=== PATIENT | female | born 1980 | race American Indian/Alaskan Native ===

== ENCOUNTER 2017-01-26 13:29 | Emergency (ER) | payer MEDICAID ==
--- NOTE | 2017-01-26 14:07 | XRay Report ---
ROUTINE CHEST, TWO VIEWS: SOB PA and lateral views demonstrate the heart and mediastinal contour to be of normal size and shape. The lungs are clear and fully expanded and the soft tissues and bony structures are normal. IMPRESSION: Normal study.
[2017-01-26 14:08] LABS: Basophils % (Auto) 0.5 % (0.0-1.8); Eosinophils % (Auto) 0.6 % (0.0-4.3); Hematocrit 43.8 % (30.3-42.9); Hemoglobin 14.3 gm/dl (10.1-14.3); Mean Corpuscular HGB Conc 33 % (30-34); Mean Corpuscular Hemoglobin 30 pg (28-32); Mean Corpuscular Volume 92 fl (79-97); Platelet Count 227 K/mm3 (140-440); Red Blood Count 4.75 M/mm3 (3.65-5.03); Red Cell Distribution Width 15.5 % (13.2-15.2); White Blood Count 3.8 K/mm3 (4.5-11.0)
[2017-01-26 14:20] LABS: Anion Gap 16 mmol/L; BUN/Creatinine Ratio 18.57; Blood Urea Nitrogen 13 mg/dL (7-17); Calcium 9.3 mg/dL (8.4-10.2); Carbon Dioxide 25 mmol/L (22-30); Chloride 104.9 mmol/L (98-107); Glucose 77 mg/dL (65-100); Potassium 4.1 mmol/L (3.6-5.0); Sodium 142 mmol/L (137-145)
[2017-01-26] MEDS ORDERED: MOTRIN PO ONE (20:14)
[2017-01-26] MEDS ORDERED: PEPCID PO ONE (20:14)
--- NOTE | 2017-01-26 20:15 | Emergency Department Report ---
ED Chest Pain HPI - General Chief Complaint: Chest Pain Stated Complaint: CHEST PAIN Time Seen by Provider: 01/26/17 20:04 Source: patient Mode of arrival: Ambulatory Limitations: No Limitations - History of Present Illness Initial Comments: Female with complaint of worsening chest pain over the last week. Patient states that she feels like she has some pressure in her chest especially when she lays flat. Denies other associated symptoms. Does not get worse with exertion. There is no radiation. She describes it as pressure in the center chest. No pain with food ingestion. No other medical problems Onset: during rest, during exertion Pain Location: substernal Pain Radiation: none Severity: mild, moderate Quality: pressure Improves With: nothing Worsens With: supine re: denies: nausea, vomting, diaphoresis, dyspnea, sense of impending doom, other - Related Data Previous Rx's Medication Instructions Recorded Last Taken Type amLODIPine [Norvasc] 5 mg PO DAILY #30 tab 11/03/13 07/04/14 Rx Famotidine [Pepcid] 20 mg PO ONCE PRN #30 tablet 01/26/17 Unknown Rx Ibuprofen [Motrin 600 MG tab] 600 mg PO ONCE PRN #30 tablet 01/26/17 Unknown Rx Allergies Allergy/AdvReac Type Severity Reaction Status Date / Time Sulfa (Sulfonamide Allergy Itching Verified 01/26/17 13:35 Antibiotics) Heart Score - HEART Score History: Slightly suspicious EKG: Normal Age: < 45 Risk factors: 1-2 risk factors Troponin: < normal limit HEART Score: 1 - Critical Actions Critical Actions: 0-3 pts:0.9-1.7%risk of adverse cardiac event.Candidate for discharge ED Review of Systems ROS: Stated complaint: CHEST PAIN Other details as noted in HPI Comment: All other systems reviewed and negative Constitutional: denies: chills, fever Eyes: denies: eye pain, eye discharge, vision change ENT: denies: ear pain, throat pain Respiratory: denies: cough, shortness of breath, wheezing Cardiovascular: denies: chest pain, palpitations Endocrine: no symptoms reported Gastrointestinal: denies: abdominal pain, nausea, diarrhea Genitourinary: denies: urgency, dysuria, discharge Musculoskeletal: denies: back pain, joint swelling, arthralgia Skin: denies: rash, lesions Neurological: denies: headache, weakness, paresthesias Psychiatric: denies: anxiety, depression Hematological/Lymphatic: denies: easy bleeding, easy bruising ED Past Medical Hx - Past Medical History Hx Hypertension: Yes - Surgical History Past Surgical History?: No Additional Surgical History: X 2 - Family History Family history: no significant - Social History Smoking Status: Current Every Day Smoker Substance Use Type: Alcohol - Medications Home Medications: Home Medications Medication Instructions Recorded Confirmed Last Taken Type amLODIPine [Norvasc] 5 mg PO DAILY #30 tab 11/03/13 01/26/17 07/04/14 Rx Famotidine [Pepcid] 20 mg PO ONCE PRN #30 tablet 01/26/17 Unknown Rx Ibuprofen [Motrin 600 MG tab] 600 mg PO ONCE PRN #30 tablet 01/26/17 Unknown Rx ED Physical Exam - General Limitations: No Limitations General appearance: alert, in no apparent distress - Head Head exam: Present: atraumatic, normocephalic - Eye Eye exam: Present: normal appearance - ENT ENT exam: Present: mucous membranes moist - Neck Neck exam: Present: normal inspection - Respiratory Respiratory exam: Present: normal lung sounds bilaterally. Absent: respiratory distress - Cardiovascular Cardiovascular Exam: Present: regular rate, normal rhythm. Absent: systolic murmur, diastolic murmur, rubs, gallop - GI/Abdominal GI/Abdominal exam: Present: soft, normal bowel sounds - Extremities Exam Extremities exam: Present: normal inspection - Back Exam Back exam: Present: normal inspection - Neurological Exam Neurological exam: Present: alert, oriented X3 - Psychiatric Psychiatric exam: Present: normal affect, normal mood - Skin Skin exam: Present: warm, dry, intact, normal color. Absent: rash ED Course Vital Signs 01/26/17 13:37 Temperature 98.2 F Pulse Rate 87 Respiratory 18 Rate Blood Pressure 160/110 O2 Sat by Pulse 99 Oximetry ED Medical Decision Making - Lab Data Result diagrams: 01/26/17 13:46 01/26/17 13:46 Laboratory Results - last 24 hr 01/26/17 01/26/17 01/26/17 13:46 13:46 16:19 WBC 3.8 L RBC 4.75 Hgb 14.3 Hct 43.8 H MCV 92 MCH 30 MCHC 33 RDW 15.5 H Plt Count 227 Lymph % (Auto) 39.4 H [place] % (Auto) 5.8 Eos % (Auto) 0.6 Baso % (Auto) 0.5 Lymph # 1.5 [place] # 0.2 Eos # 0.0 Baso # 0.0 Seg Neutrophils % 53.7 Seg Neutrophils # 2.1 Sodium 142 Potassium 4.1 Chloride 104.9 Carbon Dioxide 25 Anion Gap 16 BUN 13 Creatinine 0.7 Estimated GFR > 60 BUN/Creatinine Ratio 18.57 Glucose 77 Calcium 9.3 Troponin T < 0.010 < 0.010 - EKG Data -: EKG Interpreted by Me - EKG Data 01/26/17 20:13 Sinus 74 normal axis normal intervals no ST-T wave changes - Medical Decision Making 36-year-old female here with low risk chest pain and normal EKG normal chest x- ray labs unremarkable. Troponins negative 2. Her heart scar place her low risk. Likely musculoskeletal. Plan at discharge. Portions of this chart were dictated with dictation software. There may be dictation errors contained within this note. Critical care attestation.: If time is entered above; I have spent that time in minutes in the direct care of this critically ill patient, excluding procedure time. ED Disposition Clinical Impression: Chest pain Disposition: DC-01 TO HOME OR SELFCARE Is pt being admited?: No Condition: Stable Instructions: Chest Pain (ED) Additional Instructions: Follow-up with your primary care physician next week. Prescriptions: Famotidine [Pepcid] 20 mg PO ONCE PRN #30 tablet PRN Reason: Pain Ibuprofen [Motrin 600 MG tab] 600 mg PO ONCE PRN #30 tablet PRN Reason: Pain Referrals: PRIMARY CARE, [Primary Care Provider] - 3-5 Days
[2017-01-26 23:23] VITALS: BP 176/98
== END 2017-01-26 21:00 | disposition home or self-care (01) ==
LOC: ED 13:29
DX: R07.89 Other chest pain (principal); I10 Essential (primary) hypertension; F17.210 Nicotine dependence, cigarettes, uncomplicated; Z88.2 Allergy status to sulfonamides
CPT/HCPCS: 36415; 71020; 80048; 84484; 85025; 93005; 93010; 99285

== ENCOUNTER 2017-07-17 08:36 | Emergency (ER) | payer SELFPAY ==
[2017-07-17 10:19] LABS: Bilirubin,Urine NEG (Negative); Blood,Urine SM (Negative); Color,Urine Yellow (Yellow); Mucus,Urine 1+ /HPF; Nitrite,Urine NEG (Negative); Protein,Urine <15 mg/dL mg/dL (Negative); Urobilinogen,Urine < 2.0 mg/dL (<2.0); WBC,Urine < 1.0 /HPF (0.0-6.0)
[2017-07-17 10:20] LABS: HCG Qualitative,Urine Negative (Negative)
--- NOTE | 2017-07-17 11:20 | Emergency Department Report ---
ED Female HPI - General Chief complaint: Urogenital-Female Stated complaint: PELVIC PAIN Time Seen by Provider: 07/17/17 09:33 Source: patient Mode of arrival: Ambulatory Limitations: No Limitations - History of Present Illness Initial comments: Patient is a 37-year-old female with no prior medical history who presents to ED complaining of malodorous, vaginal discharge 4 days. Patient also complains of intermittent pain of the vagina. Patient states she had unprotected intercourse last week and Had last night. She denies vaginal itching, dysuria. She states she is on Nexplanon for contraceptive use. MD Complaint: vaginal discharge - Related Data Previous Rx's Medication Instructions Recorded Last Taken Type amLODIPine [Norvasc] 5 mg PO DAILY #30 tab 11/03/13 07/04/14 Rx Famotidine [Pepcid] 20 mg PO ONCE PRN #30 tablet 01/26/17 Unknown Rx Amoxicillin/K Clav Tab [Augmentin 1 tab PO Q12HR #14 tab 07/17/17 Unknown Rx 875 mg] Ibuprofen [Motrin 600 MG tab] 600 mg PO ONCE PRN #30 tablet 07/17/17 Unknown Rx Allergies Allergy/AdvReac Type Severity Reaction Status Date / Time Sulfa (Sulfonamide Allergy Itching Verified 01/26/17 13:35 Antibiotics) ED Review of Systems ROS: Stated complaint: PELVIC PAIN Other details as noted in HPI Constitutional: denies: chills, fever Eyes: denies: eye pain, eye discharge, vision change ENT: denies: ear pain, throat pain Respiratory: denies: cough, shortness of breath, wheezing Cardiovascular: denies: chest pain, palpitations Endocrine: no symptoms reported Gastrointestinal: denies: abdominal pain, nausea, diarrhea Genitourinary: discharge. denies: urgency, dysuria, frequency, hematuria Musculoskeletal: denies: back pain, joint swelling, arthralgia Skin: denies: rash, lesions, pruritus Neurological: denies: headache, weakness, numbness, paresthesias, confusion Psychiatric: denies: anxiety, depression Hematological/Lymphatic: denies: easy bleeding, easy bruising ED Past Medical Hx - Past Medical History Previous Medical History?: Yes Hx Hypertension: Yes (no meds) Additional medical history: Frequent BV diagnosis - Surgical History Past Surgical History?: Yes Additional Surgical History: X 2 - Social History Smoking Status: Current Every Day Smoker Substance Use Type: Alcohol, Marijuana, Non Opiate Pain - Medications Home Medications: Home Medications Medication Instructions Recorded Confirmed Last Taken Type amLODIPine [Norvasc] 5 mg PO DAILY #30 tab 11/03/13 01/26/17 07/04/14 Rx Famotidine [Pepcid] 20 mg PO ONCE PRN #30 tablet 01/26/17 Unknown Rx Amoxicillin/K Clav Tab [Augmentin 1 tab PO Q12HR #14 tab 07/17/17 Unknown Rx 875 mg] Ibuprofen [Motrin 600 MG tab] 600 mg PO ONCE PRN #30 tablet 07/17/17 Unknown Rx ED Physical Exam - General Limitations: No Limitations General appearance: alert, in no apparent distress - Head Head exam: Present: atraumatic, normocephalic - Eye Eye exam: Present: normal appearance - ENT ENT exam: Present: mucous membranes moist - Neck Neck exam: Present: normal inspection - Respiratory Respiratory exam: Present: normal lung sounds bilaterally. Absent: respiratory distress - Cardiovascular Cardiovascular Exam: Present: regular rate, normal rhythm. Absent: systolic murmur, diastolic murmur, rubs, gallop - GI/Abdominal GI/Abdominal exam: Present: soft, normal bowel sounds. Absent: distended, tenderness, guarding - Rectal Rectal exam: Present: normal inspection. Absent: mass - External exam: Present: normal external exam. Absent: erythema, swelling, lesions, lacerations, bleeding Speculum exam: Present: vaginal discharge (minimal, normal appearance). Absent : erythema, cervical discharge, vaginal bleeding Bi-manual exam: Present: normal bi-manual exam. Absent: cervical motion tendernes, adnexal tenderness, uterine enlargement - Extremities Exam Extremities exam: Present: normal inspection - Back Exam Back exam: Present: normal inspection - Neurological Exam Neurological exam: Present: alert, oriented X3 - Psychiatric Psychiatric exam: Present: normal affect, normal mood - Skin Skin exam: Present: warm, dry, intact, normal color. Absent: rash ED Course Vital Signs 07/17/17 08:44 Temperature 98.1 F Pulse Rate 93 H Respiratory 18 Rate Blood Pressure 164/102 O2 Sat by Pulse 100 Oximetry ED Medical Decision Making - Medical Decision Making 37-year-old female present with a cystitis ED course: Urinalysis, urine test, wet prep ordered. Wet prep negative, urinalysis positive for slight trace leuks and elevated white count. I discussed the patient and I will treat her for some mild cystitis otherwise follow-up with primary care physician I discussed the patient STD testing will be back in 3 days and can call back for result. Vital signs are normal. Patient is in no acute distress. I discussed the patient to abstain from sex for the next 7-10 days. Critical care attestation.: If time is entered above; I have spent that time in minutes in the direct care of this critically ill patient, excluding procedure time. ED Disposition Clinical Impression: Cystitis Disposition: DC-01 TO HOME OR SELFCARE Is pt being admited?: No Does the pt Need Aspirin: No Condition: Stable Instructions: Sexually Transmitted Diseases (ED), Safe Sex (ED), Urinary Tract Infection in Women (ED), Chronic Pelvic Pain in Women (ED) Additional Instructions: Make sure to follow up with the primary care physician as discussed. Take all your medications as you've been prescribed. If you have any worsening symptoms or develop new symptoms please return to ED immediately. Prescriptions: Amoxicillin/K Clav Tab [Augmentin 875 mg] 1 tab PO Q12HR #14 tab Ibuprofen [Motrin 600 MG tab] 600 mg PO ONCE PRN #30 tablet PRN Reason: Pain Referrals: PRIMARY CAREMD [Primary Care Provider] - 3-5 Days YUSUF BRISCOE MD [Referring] - 3-5 Days [facility] [Outside] - 3-5 Days [facility] [Outside] - 3-5 Days Forms: Accompanied Note, Work/School Release Form(ED) Time of Disposition: 11:41
[2017-07-17 15:18] VITALS: BP 160/86
== END 2017-07-17 11:45 | disposition home or self-care (01) ==
LOC: ED 08:36
DX: N30.90 Cystitis, unspecified without hematuria (principal); I10 Essential (primary) hypertension; F17.200 Nicotine dependence, unspecified, uncomplicated; F12.10 Cannabis abuse, uncomplicated; Z88.2 Allergy status to sulfonamides
CPT/HCPCS: 81001; 81025; 87210; 87591; 99284

== ENCOUNTER 2017-08-25 20:06 | Emergency (ER) | payer SELFPAY ==
[2017-08-25] MEDS ORDERED: MOTRIN PO ONE (22:02)
[2017-08-25] MEDS ORDERED: AUGMENTIN 875 MG PO ONE (22:02)
[2017-08-25] MEDS ORDERED: NACL 0.9% IR ONE (22:03)
[2017-08-25] MEDS ORDERED: BOOSTRIX IM ONE (22:04)
--- NOTE | 2017-08-25 22:06 | Emergency Department Report ---
ED Animal Bite HPI - General Chief Complaint: Animal Bite Stated Complaint: DOG BITE Time Seen by Provider: 08/25/17 22:01 Source: patient Mode of arrival: Ambulatory Limitations: No Limitations - History of Present Illness Initial Comments: 37-year-old -[place] female comes in stating she was bitten on her right hand by a stray dog around 545 this evening. Patient reports that she spoke to animal control was advised to only get tetanus shot and not rabies shot at this time. She reports an control has the dog in their care. Patient reports that she has a history of hypertension but has not been on medication for a while. Patient reports that she does not work does not have insurance that she is not able to pay for her high blood pressure. Complaint: animal bite -: hour(s) (5) Time: 17:45 Right: Hand Animal: dog Animal Control Notified: Yes Description: wild animal Mechanism: bite Pain Description: sharp, burning Context: unprovoked Associated Symptoms: erythema, bleeding - Related Data Patient Tetanus UTD: No Previous Rx's Medication Instructions Recorded Last Taken Type Amoxicillin/K Clav Tab [Augmentin 1 each PO BID 10 Days #20 tablet 08/25/17 Unknown Rx 875MG TAB] Diclofenac Sodium 50 mg PO Q8H 5 Days #15 tablet. 08/25/17 Unknown Rx Fluconazole [Diflucan TAB] 150 mg PO ONCE #1 tablet 08/25/17 Unknown Rx Sodium Chloride Irri 500 ml [NaCl 500 ml IR ONCE bottle 08/25/17 Unknown Rx 0.9%] amLODIPine [Norvasc] 5 mg PO DAILY #30 tab 08/25/17 Unknown Rx Allergies Allergy/AdvReac Type Severity Reaction Status Date / Time Sulfa (Sulfonamide Allergy Itching Verified 01/26/17 13:35 Antibiotics) ED Review of Systems ROS: Stated complaint: DOG BITE Other details as noted in HPI Constitutional: denies: chills, fever Eyes: denies: eye pain, eye discharge, vision change ENT: denies: ear pain, throat pain Respiratory: denies: cough, shortness of breath, wheezing Cardiovascular: denies: chest pain, palpitations Endocrine: no symptoms reported Gastrointestinal: denies: abdominal pain, nausea, diarrhea Genitourinary: denies: urgency, dysuria, discharge Musculoskeletal: arthralgia (rt hand), myalgia (right hand). denies: back pain , joint swelling Skin: denies: rash, lesions Neurological: denies: headache, weakness, paresthesias Psychiatric: denies: anxiety, depression Hematological/Lymphatic: denies: easy bleeding, easy bruising ED Past Medical Hx - Past Medical History Previous Medical History?: Yes Hx Hypertension: Yes (no meds) Additional medical history: Frequent BV diagnosis - Surgical History Past Surgical History?: Yes Additional Surgical History: X 2 - Social History Smoking Status: Current Every Day Smoker - Medications Home Medications: Home Medications Medication Instructions Recorded Confirmed Last Taken Type Amoxicillin/K Clav Tab [Augmentin 1 each PO BID 10 Days #20 tablet 08/25/17 Unknown Rx 875MG TAB] Diclofenac Sodium 50 mg PO Q8H 5 Days #15 tablet. 08/25/17 Unknown Rx Fluconazole [Diflucan TAB] 150 mg PO ONCE #1 tablet 08/25/17 Unknown Rx Sodium Chloride Irri 500 ml [NaCl 500 ml IR ONCE bottle 08/25/17 Unknown Rx 0.9%] amLODIPine [Norvasc] 5 mg PO DAILY #30 tab 08/25/17 Unknown Rx ED Physical Exam - General Limitations: No Limitations General appearance: alert, in no apparent distress - Head Head exam: Present: atraumatic, normocephalic - Eye Eye exam: Present: normal appearance - ENT ENT exam: Present: mucous membranes moist - Expanded Upper Extremity Exam Right Hand Wrist exam: Present: tenderness, swelling, erythema ED Course Vital Signs 08/25/17 08/25/17 20:13 21:02 Temperature 98.7 F 98.7 F Pulse Rate 98 H 98 H Respiratory 18 18 Rate Blood Pressure 171/111 Blood Pressure 171/111 [Right] O2 Sat by Pulse 100 100 Oximetry Critical care attestation.: If time is entered above; I have spent that time in minutes in the direct care of this critically ill patient, excluding procedure time. ED Disposition Clinical Impression: Animal bite of hand Qualifiers: Encounter type: initial encounter Laterality: right Qualified Code(s): S61.451A - Open bite of right hand, initial encounter Disposition: TO HOME OR SELFCARE Is pt being admited?: No Does the pt Need Aspirin: No Condition: Stable Additional Instructions: Complete antibiotics as prescribed. Dressing changes daily. Pain medication as prescribed. Follow up with her primary care provider for your hypertension. Prescriptions: amLODIPine [Norvasc] 5 mg PO DAILY #30 tab Amoxicillin/K Clav Tab [Augmentin 875MG TAB] 1 each PO BID 10 Days #20 tablet Diclofenac Sodium 50 mg PO Q8H 5 Days #15 tablet. Fluconazole [Diflucan TAB] 150 mg PO ONCE #1 tablet Referrals: ASHLEY MCCORMICK MD [Primary Care Provider] - 3-5 Days [facility] [Provider Group] - 3-5 Days [facility] [Provider Group] - 3-5 Days Forms: Accompanied Note
--- NOTE | 2017-08-25 22:41 | XRay Report ---
FINAL REPORT EXAM: XR HAND 2V RT HISTORY: puncture wound from dog bite TECHNIQUE: 2 views right hand PRIORS: None. FINDINGS: No fracture is identified. No dislocation seen. Joint spaces are within normal limits. No erosive bony change identified. Carpal bones maintain normal alignment. Distal radius and ulna are intact. No radiopaque foreign bodies seen. IMPRESSION: No fracture or radiopaque foreign body identified
[2017-08-25] MEDS ORDERED: DIFLUCAN PO ONE (23:33)
[2017-08-25 23:38] VITALS: BP 165/103
== END 2017-08-25 23:38 | disposition home or self-care (01) ==
LOC: ED 20:06
DX: S61.451A Open bite of right hand, initial encounter (principal); I10 Essential (primary) hypertension; F17.200 Nicotine dependence, unspecified, uncomplicated; Z88.2 Allergy status to sulfonamides; W54.0XXA Bitten by dog, initial encounter; Y93.89 Activity, other specified; Y99.8 Other external cause status; Y92.89 Other specified places as the place of occurrence of the external cause
CPT/HCPCS: 90471; 90715; 99283

== ENCOUNTER 2017-09-20 08:08 | Emergency (ER) | payer SELFPAY ==
[2017-09-20 08:39] VITALS: BP 136/86
[2017-09-20 09:00] LABS: HCG Qualitative,Urine Negative (Negative)
[2017-09-20 09:01] LABS: Bilirubin,Urine NEG (Negative); Blood,Urine NEG (Negative); Color,Urine Yellow (Yellow); Mucus,Urine FEW /HPF; Protein,Urine <15 mg/dL mg/dL (Negative); Urobilinogen,Urine < 2.0 mg/dL (<2.0)
== END 2017-09-20 12:15 | disposition left against medical advice (07) ==
LOC: ED 08:08
DX: R10.2 Pelvic and perineal pain (principal); Z53.21 Procedure and treatment not carried out due to patient leaving prior to being seen by health care provider
CPT/HCPCS: 81001; 81025